=== PATIENT | female | born 1960 | race Caucasian/White ===

== ENCOUNTER 2017-11-05 16:59 | Emergency (ER) | payer BC, OTHER ==
[~2017-11-05] VITALS: Ht 160 cm; Wt 68.0 kg
[2017-11-05 17:40] LABS: *BILIRUBIN,URIN NEGATIVE (NEGATIVE); *BLOOD, URINE 3+ (NEGATIVE); *CLARITY,URINE CLEAR (CLEAR); *COLOR,URINE YELLOW (YELLOW); *KETONES,URINE NEGATIVE (NEGATIVE); *PROTEIN,URINE TRACE (NEGATIVE); *UROBILINOGEN,URINE 0.2 E.U./dl (NORMAL); LEUKOCYTE ESTERASE ,URINE NEGATIVE (NEGATIVE); NITRITE, URINE NEGATIVE (NEGATIVE); PH,URINE 5.5 (5.0-8.0); UGLUCOSE NEGATIVE (NEGATIVE)
[2017-11-05 17:53] LABS: BACTERIA,URINE NONE SEEN /HPF (NONE SEEN); SQUAMOUS EPITHELIAL CELL,UR FEW /HPF (NONE SEEN); WBC,URINE 0-3 /HPF (0-3)
--- NOTE | 2017-11-05 18:38 | NUR ---
Call placed to pt's pmd per Dr. Love request, no answer, left urgent msg for call back.
--- NOTE | 2017-11-05 19:03 | NUR ---
Pt left without written ACI and Rx's. Pt stated " I don't need them ".
== END 2017-11-05 19:06 | disposition home or self-care (01) ==
LOC: ER 16:59
DX: R10.32 Left lower quadrant pain (principal)
CPT/HCPCS: 74176; 81001; 99285; A4663